=== PATIENT | female | born 1980 | race Two or more races ===

== ENCOUNTER 2024-04-12 15:50 | Emergency (ER) | payer MEDICAID ==
[~2024-04-12] VITALS: Ht 172.7 cm; Wt 51.0 kg
[2024-04-12 15:52] VITALS: BP 125/72; PULSE 76; RESP 16; TEMP 97.9; O2SAT 100
[2024-04-12] MEDS: KETOROLAC TROMETHAMINE 30 MG/ML VIAL IVP ONE (19:04)
[2024-04-12] MEDS: DEXAMETHASONE SOD PHOS 4 MG/ML 5 ML VIAL IVP ONE (19:04)
[2024-04-12] MEDS: ONDANSETRON HCL 4 MG/2 ML VIAL IVP ONE (19:04)
[2024-04-12] MEDS ORDERED: IBUP-1492 PO (20:17)
[2024-04-12] MEDS ORDERED: ONDA-104 PO (20:17)
== END 2024-04-12 21:07 | disposition home or self-care (01) ==
LOC: EMS 15:50
DX: G43.909 Migraine, unspecified, not intractable, without status migrainosus (principal)
CPT/HCPCS: 99284; 96374; 96375; 93005; J1100; J1885; J2405